=== PATIENT | male | born 1980 | race African-American/Black ===

== ENCOUNTER 2018-06-27 10:38 | Emergency (ER) | payer SELFPAY ==
[~2018-06-27] VITALS: Ht 172.7 cm; Wt 72.7 kg
[~2018-06-27 10:38] MED LIST: FLEXERIL 1010 MG/TAB PO; LORTAB 5/500 501 TAB PO; NO HOME MEDICATIONS; NORCO 325 MG-51 TAB PO
[2018-06-27 10:48] VITALS: TEMP 99
[2018-06-27 11:29] VITALS: BP 123/68; PULSE 65
== END 2018-06-27 11:34 | disposition home or self-care (01) ==
LOC: COL.ER 10:38
DX: M54.5 Low back pain (principal); F17.210 Nicotine dependence, cigarettes, uncomplicated
CPT/HCPCS: J1885

== ENCOUNTER 2018-07-01 16:39 | Emergency (ER) | payer SELFPAY ==
[~2018-07-01] VITALS: Ht 172.7 cm; Wt 77.3 kg
[2018-07-01 16:41] VITALS: BP 129/73; TEMP 99.3
[2018-07-01] MEDS ORDERED: FLEXERIL 1010 MG/TAB PO (17:05)
[2018-07-01] MEDS ORDERED: PREDNISONE20 MG PO (17:05)
[2018-07-01] MEDS ORDERED: NORCO 325 MG-51 TAB PO (17:05)
[2018-07-01 17:49] VITALS: PULSE 56
== END 2018-07-01 17:50 | disposition home or self-care (01) ==
LOC: COL.ER 16:39
DX: S33.9XXA Sprain of unspecified parts of lumbar spine and pelvis, initial encounter (principal); X50.0XXA Overexertion from strenuous movement or load, initial encounter
CPT/HCPCS: J7512

== ENCOUNTER → 2019-10-01 | Outpatient (CLI) | payer BC ==
--- NOTE | 2019-09-29 08:19 | NUR ---
Called and left voicemail on machine. Instructions given. Informed to call back for medical history.
[~2019-10-01] VITALS: Ht 172.7 cm; Wt 83.0 kg
[~2019-10-01] MED LIST changes: +MOBIC15 MG PO; +NEURONTIN800 MG/TAB PO; +PREDNISONE20 MG PO; +ROBAXIN 50500 MG/TAB PO; +ZANAFLEX 4MG TAB4 MG PO
[2019-10-01 11:41] VITALS: BP 147/98; PULSE 72
[2019-10-01 12:38] VITALS: BP 110/91; PULSE 67
== END ==
LOC: COL.RAD 11:19
DX: M51.26 Other intervertebral disc displacement, lumbar region (principal)
CPT/HCPCS: J3301

== ENCOUNTER 2021-03-01 07:49 | Emergency (ER) | payer SELFPAY ==
[~2021-03-01] VITALS: Ht 172.7 cm; Wt 77.3 kg
[2021-03-01 08:07] VITALS: TEMP 98.6
[2021-03-01] MEDS ORDERED: ZITHROMAX Z PA250 MG PO (09:16)
[2021-03-01 09:42] VITALS: BP 120/60; PULSE 80
== END 2021-03-01 09:45 ==
LOC: COL.ER 07:49
DX: U07.1 COVID-19 (principal); F17.210 Nicotine dependence, cigarettes, uncomplicated
CPT/HCPCS: J1100